=== PATIENT | male | born 1960 | race Caucasian/White ===

== ENCOUNTER 2017-10-08 07:18 | Emergency (ER) | payer MEDICARE, MEDICAID ==
[~2017-10-08] VITALS: Ht 182.9 cm; Wt 77.0 kg
[~2017-10-08 07:18] MED LIST: BECL7.3A INH; CHLO25CA10 PO; CLIN-79 PO; FLUT16SP16; GABA-532 PO; IBUP-1984 PO; LISI10TA4 PO; OMEP-50 PO; OMEP20CA10 PO; PANT-47 PO; PRED10TA PO; QUET25TA34; [UNRECOGNIZED DRUG - CODE] OT
[2017-10-08 07:46] LABS: CLARITY,URINE CLEAR (Clear); COLOR,URINE YELLOW (Yellow); GLUCOSE, URINE NEGATIVE (Neg); KETONES,URINE NEGATIVE (Neg); LEUKOCYTE ESTERASE ,URINE NEGATIVE (Neg); NITRITES, URINE NEGATIVE (Neg); OCCULT BLOOD,URINE NEGATIVE (Neg); PROTEIN,URINE NEGATIVE (Neg); UROBILINOGEN,URINE 0.2 E.U/dL (0.2-1.0)
[2017-10-08 07:49] LABS: UA COLLECTION TYPE CLN CATCH MIDSTREAM
[2017-10-08] MEDS ORDERED: TRAZ-143 PO (07:53)
[2017-10-08] MEDS ORDERED: PER10325T PO (07:53)
[2017-10-08 08:04] LABS: BASOPHILS # (AUTO) 0.1 X10'3 (0-0.2); BASOPHILS % (AUTO) 0.9 % (0-1); EOSINOPHILS # (AUTO) 0.1 X10'3 (0-0.9); EOSINOPHILS % (AUTO) 0.8 % (0-6); HEMATOCRIT 45.4 % (42.0-52.0); HEMOGLOBIN 15.4 g/dl (14.0-17.9); LYMPHOCYTES # (AUTO) 1.7 X10'3 (1.1-4.8); LYMPHOCYTES % (AUTO) 25.8 % (21-51); MEAN CORPUSCULAR HEMOGLOBIN 32.6 PG (27.0-31.0); MEAN CORPUSCULAR HGB CONC 33.8 % (33.0-36.5); MEAN CORPUSCULAR VOLUME 96.4 FL (78-98); MEAN PLATELET VOLUME 7.4 FL (7.4-10.4); MONOCYTES # (AUTO) 0.5 X10'3 (0-0.9); MONOCYTES % (AUTO) 6.8 % (2-12); NEUTROPHILS # (AUTO) 4.4 X10'3 (1.8-7.7); NEUTROPHILS % (AUTO) 65.7 % (42-75); PLATELET COUNT 284 X10'3 (140-440); RED BLOOD COUNT 4.71 X10'6 (4.70-6.10); RED CELL DISTRIBUTION WIDTH 14.7 % (11.5-14.5); WHITE BLOOD COUNT 6.7 X10'3 (4.5-11.0)
[2017-10-08 08:18] LABS: ALANINE AMINOTRANSFERASE 40 U/L (12-78); ALKALINE PHOSPHATASE 76 IU/L (46-116); ANION GAP 9 (8-16); ASPARTATE AMINO TRANSFERASE 26 U/L (10-37); BILIRUBIN,TOTAL 0.4 MG/DL (0.1-1.0); BLOOD UREA NITROGEN 12 MG/DL (7-18); BUN/CREATININE RATIO 9.7 (5.4-32.0); CHLORIDE 101 MMOL/L (99-107); CREATININE 1.24 MG/DL (0.60-1.10); GLUCOSE 120 MG/DL (70-104); POTASSIUM 4.2 MMOL/L (3.5-5.1); SODIUM 137 MMOL/L (135-145); TOTAL CARBON DIOXIDE 26.9 MMOL/L (24-32); eGFR 60 ML/MIN
[2017-10-08] MEDS ORDERED: ondansetron 4mg rapidly disintigrating tab PO ONE (08:35)
[2017-10-08] MEDS ORDERED: LORazepam 1 MG tablet PO ONE (08:35)
[2017-10-08] MEDS ORDERED: LORazepam 2 mg/ml vial ONE (08:41)
[2017-10-08] MEDS ORDERED: CHLO25CA10 PO (11:49)
[2017-10-08 12:07] VITALS: BP 152/95
== END 2017-10-08 12:10 | disposition home or self-care (01) ==
LOC: ER 07:18
DX: F41.9 Anxiety disorder, unspecified (principal); F10.239 Alcohol dependence with withdrawal, unspecified; J44.9 Chronic obstructive pulmonary disease, unspecified; F17.210 Nicotine dependence, cigarettes, uncomplicated; Z85.118 Personal history of other malignant neoplasm of bronchus and lung; Z98.61 Coronary angioplasty status; Z90.49 Acquired absence of other specified parts of digestive tract; Z98.890 Other specified postprocedural states; Z79.899 Other long term (current) drug therapy; Z56.0 Unemployment, unspecified; Y90.9 Presence of alcohol in blood, level not specified
CPT/HCPCS: 36415; 71045; 80053; 81003; 84484; 85025; 93005; 96374; 99285; J2060